=== PATIENT | male | born 1950 | race Caucasian/White ===

== ENCOUNTER → 2023-05-15 13:57 | Outpatient (BNVA) | payer BC, SELFPAY | PROVIDERS: PCP Physician Assistant Medical; Visit Provider Nurse Practitioner Family ==

== ENCOUNTER → 2023-06-07 14:02 | Outpatient (BNVA) | payer BC, SELFPAY | PROVIDERS: PCP Physician Assistant Medical; Visit Provider Nurse Practitioner Family | DX: N43.3 Hydrocele, unspecified (principal); Z85.46 Personal history of malignant neoplasm of prostate; Z79.899 Other long term (current) drug therapy | CPT/HCPCS: 55000 ==

== ENCOUNTER → 2023-07-18 10:39 | Outpatient (BNVA) | payer BC, SELFPAY | PROVIDERS: PCP Physician Assistant Medical; Visit Provider Nurse Practitioner Family | DX: N43.3 Hydrocele, unspecified (principal); R39.12 Poor urinary stream; C61 Malignant neoplasm of prostate | CPT/HCPCS: 81003 ==

== ENCOUNTER → 2023-07-18 10:39 | Outpatient (AMB) | payer BC, SELFPAY ==
--- NOTE | 2023-07-18 10:42 | A.OFFVIS_ITS ---
Intake Intake Visit Reasons: 6w follow up Intake Note: Patient is present follow up Left hydrocele aspiration Urology Medications: none Blood Thinner: none Media Buyer Required: No Accompanied by: Self / Same As Patient Allergies No Known Allergies Allergy (Verified 07/18/23 20:46) Medication List - Last Reconciled 07/18/23 by MUSA Dodson- amlodipine 5 mg PO DAILY lisinopril 40 mg PO DAILY pravastatin 10 mg PO BEDTIME tamsulosin 0.4 mg PO BEDTIME 30 days HPI HPI Comments History of Present Illness Details Joshua is a very pleasant 73-year-old male patient of Dr. Kim. He has a past medical history of hypertension, hyperlipidemia, and prostate cancer. He presents to the office today for a follow up of his recent hydrocele drainage. Of note, patient was previously seen approximately 6 weeks ago at which time he underwent left-sided hydrocele drainage in the office. When asked patient reports to be doing and feeling well. In assessment of the patient today significant improvement in left sided hydrocele. Patient does continue with small residual within the left scrotal/testicle area. However, patient reports to be doing and feeling much better as he had previously been experiencing pain due to moderate sized hydrocele. No redness, open areas, or drainage noted. During last office visit patient reported to be following up with PSAs with PCP these records were obtained for continuity of care. PSAs are as follows: 02/06--3.9, 10/10--2.7, 04/10--1.11, 12/12--0.5, 06/11--0.4, 12/13--0.3, 12/14--0.3, 06/13 0.3, 12/15--0.3, 05/15--0.4, 02/13--0.3, 06/15--0.3, 07/17--0.3 When asked patient does report weak urinary stream however he denies urinary urgency, urinary frequency, incontinence, nocturia, hematuria, dysuria, foul smelling urine, flank pain, fever, and or chills. Discussed obtaining retroperitoneal ultrasound for further assessment evaluation however patient declines at this time. Discussed at length potential causes for change in urinary stream. Discussed near future in office cystoscopy if symptoms persist and/or worsen. Discuss trial of Flomax. Patient otherwise denies any other issues or concerns at this time. FORMERLY [facility], [facility] Medical History (Updated 07/18/23 @ 21:08 by RADHA Dodson) Accelerated essential hypertension Hyperlipidemia Prostate cancer Review of Systems Const Reports as per HPI Eyes Reports no additional complaints ENT Reports no additional complaints Card Reports as per HPI Resp Reports no additional complaints GI Reports no additional complaints Reports as per HPI Musc Reports no additional complaints Neuro Reports no additional complaints Psych Reports no additional complaints Endo Reports no additional complaints Anam/Lymph Reports no additional complaints Aller/Immun Reports no additional complaints Physical Exam Const General: cooperative, healthy appearing, comfortable, no acute distress, well developed, alert and awake Orientation/consciousness: patient oriented x3 Limitations: no limitations HEENT Head: Yes normal to inspection, Yes normocephalic and Yes atraumatic Ears: hearing grossly normal bilaterally Eyes General: appearance normal, both eyes and all related structures Neck Neck: Yes normal visual inspection and Yes trachea midline Chest Chest palpation & inspection: normal inspection of the chest Resp Effort & Inspection: normal respiratory effort and able to speak in complete sentences Cardio Rate: regular rate GI Inspection: Yes normal to inspection General: Yes no CVA tenderness Penis: normal penis Meatus: meatus normal Scrotum: Hydrocele present (trace/small) on the left Testes: Testes normal Back/Spine/Pelvis Back: no CVA tenderness Skin General skin exam: no rashes or lesions noted Neuro General: patient oriented x3 Extrem General: Yes normal to inspection Psych Appearance: grossly normal and well kempt Mental Status: mental status grossly normal Speech and movement: Normal speech and movement present and Clear speech present Affect: normal affect Attitude: cooperative Thought process: Normal thought process present Thought content: Normal thought content present Insight: Good insight present (Psych) Judgement: Good judgement present (Psych) Results AMB Urinalysis, Automated UA Leukoctes 0 Rashid/uL Last Edit by Shawanda Guthrie on 07/18/23 11:04 UA Nitrite Negative Last Edit by Shawanda Guthrie on 07/18/23 11:04 UA Urobilinogen 0.2 mg/dL Last Edit by Shawanda Guthrie on 07/18/23 11:04 UA Protein 30 mg/dL Last Edit by Shawanda Guthrie on 07/18/23 11:04 UA pH 6.0 Last Edit by Shawanda Guthrie on 07/18/23 11:04 UA Blood 0 Rashaun/uL Last Edit by Shawanda Guthrie on 07/18/23 11:04 UA Specific [place] 1.020 Last Edit by Shawanda Guthrie on 07/18/23 11:04 UA Ketone Last Edit by Shawanda Vansuhail on 07/18/23 11:04 UA Bilirubin 0 mg/dL Last Edit by Shawanda Guthrie on 07/18/23 11:04 UA Glucose 0 mg/dL Last Edit by Shawanda Vansuhail on 07/18/23 11:04 Results Reviewed Results Reviewed: Laboratory Last Values Urine pH (Auto) 6.0 07/18/23 10:45 Specific [place] (Auto) 1.020 07/18/23 10:45 Urine Protein (Auto) 30 mg/dL 07/18/23 10:45 Glucose (UA)(Auto) 0 mg/dL 07/18/23 10:45 Urine Blood (Auto) 0 Rashaun/uL 07/18/23 10:45 Urine Nitrite (Auto) Negative 07/18/23 10:45 Urine Bilirubin (Auto) 0 mg/dL 07/18/23 10:45 Urine Urobilinogen (Auto) 0.2 mg/dL 07/18/23 10:45 Leukocyte Esterase (Auto) 0 Rashid/uL 07/18/23 10:45 Assessment & Plan Assessment & Plan (1) Hydrocele of testis: Code(s): N43.3 - Hydrocele, unspecified (2) Weak urinary stream: Code(s): R39.12 - Poor urinary stream (3) Prostate cancer: Code(s): C61 - Malignant neoplasm of prostate Plan In office urinalysis results reviewed with the patient today; as noted above. Patient with trace/small residual to left-sided hydrocele that was drained in the office approximately 6 weeks ago. Patient reports significant improvement in pain he had been experiencing to testicle/scrotum. Patient reporting weak urinary stream discussed potential causes. Discussed obtaining retroperitoneal ultrasound for further assessment evaluation however patient declines. Discussed near future in office cystoscopy if symptoms persist and/or worsen. Start Flomax as discussed and prescribed. Patient with history of prostate cancer PSAs obtained it appears over the last 6 years PSA has been less than 0.5. Follow-up in 6 weeks with PVR; or sooner with any issues, concerns, and or questions. Orders: Orders AMB Urinalysis Automated Today Z13.9 - Encounter for screening, unspecified Medications: New tamsulosin 0.4 mg PO BEDTIME 30 days 30 caps 1RF N40.1 - Benign prostatic hyperplasia with lower urinary tract symptoms, R35.1 - Nocturia Patient Instructions: The patient had an opportunity to ask questions regarding the treatment plan. All questions were answered. Physical exam, labs, and imaging were discussed and reviewed in detail. As well as risks, benefits, and discussion of treatment choices. No major barriers to understanding were identified. The patient expressed understanding and agreement with the above treatment plan. The patient was made aware they should contact our office by phone for worsening of their current condition, the appearance of new symptoms, or with any questions or concerns. Compliance is encouraged with any medications and follow up testing that is ordered. It is a privilege to be allowed the opportunity to participate in? your urological care.? Again, if you have any questions or concerns If you have any questions or concerns please do not hesitate to contact me. The office is [phone]. This note is constructed using voice recognition software. While every effort has been made to ensure accuracy vocational aide errors may have been included. Yours sincerely, RADHA Dodson Coding Level of Care Code Est Pt Level 4 (04124) Diagnoses Hydrocele of testis N43.3 Weak urinary stream R39.12 Prostate cancer C61
== END ==
PROVIDERS: PCP Physician Assistant Medical; Visit Provider Nurse Practitioner Family
DX: N43.3 Hydrocele, unspecified (principal); R39.12 Poor urinary stream; C61 Malignant neoplasm of prostate
CPT/HCPCS: 99214

== ENCOUNTER 2023-10-17 11:32 | Outpatient (AMB) | payer BC, SELFPAY ==
--- NOTE | 2023-10-17 11:38 | A.OFFVIS_ITS ---
Intake Intake Visit Reasons: Hydrocele - follow up/PVR Intake Note: Patient is present follow up Left hydrocele aspiration Urology Medications: tamsulosin Blood Thinner: none PVR: 69ml's Senior Case Manager Required: No Accompanied by: Self / Same As Patient Allergies No Known Allergies Allergy (Verified 10/19/23 19:59) Medication List - Last Reconciled 10/19/23 by [place] [facility]- alfuzosin ER 10 mg PO BEDTIME 30 days amlodipine 5 mg PO DAILY lisinopril 40 mg PO DAILY pravastatin 10 mg PO BEDTIME HPI HPI Comments History of Present Illness Details Joshua is a very pleasant 73-year-old male patient of Dr. Kim. He has a past medical history of hypertension, hyperlipidemia, and prostate cancer. He presents to the office today for a follow up of his lower urinary tract symptoms and left-sided hydrocele. Patient underwent in office left-sided hydrocele drainage earlier this year year. Of note, patient was seen approximately 6 weeks ago at which time he was started on 0.4 mg of tamsulosin for weak urinary stream and feelings of incomplete bladder emptying. In discussion with the patient today he reports feeling improvement in urinary stream and incomplete bladder emptying. However, he discusses noting retrograde ejaculation. He continues with significant improvement left-sided hydrocele. He otherwise denies urinary urgency, urinary frequency, incontinence, nocturia, hematuria, dysuria, foul smelling urine, flank pain, fever, and or chills. Patient with a history of prostate cancer. PSAs are as follows: 02/06--3.9, 10/10--2.7, 04/10--1.11, 12/12- -0.5, 06/11--0.4, 12/13--0.3, 12/14--0.3, 06/13 0.3, 12/15--0.3, 05/15--0.4, 02/13--0.3, 06/15--0.3, 07/17--0.3 Discussed obtaining PSA. Discussed at length side effects of tamsulosin. Discussed obtaining retroperitoneal ultrasound for further assessment evaluation however patient declines at this time. Discussed at length potential causes for change in urinary stream. Discussed near future in office cystoscopy if symptoms persist and/or worsen. Patient otherwise denies any other issues or concerns at this time. [facility] Medical History Prostate cancer Hyperlipidemia Accelerated essential hypertension Review of Systems Const Reports as per HPI Eyes Reports no additional complaints ENT Reports no additional complaints Card Reports as per HPI Resp Reports no additional complaints GI Reports no additional complaints Reports as per HPI Musc Reports no additional complaints Neuro Reports no additional complaints Psych Reports no additional complaints Endo Reports no additional complaints Anam/Lymph Reports no additional complaints Aller/Immun Reports no additional complaints Physical Exam Const General: cooperative, healthy appearing, comfortable, no acute distress, well developed, alert and awake Orientation/consciousness: patient oriented x3 Limitations: no limitations HEENT Head: Yes normal to inspection, Yes normocephalic and Yes atraumatic Ears: hearing grossly normal bilaterally Eyes General: appearance normal, both eyes and all related structures Neck Neck: Yes normal visual inspection and Yes trachea midline Chest Chest palpation & inspection: normal inspection of the chest Resp Effort & Inspection: normal respiratory effort and able to speak in complete sentences Cardio Rate: regular rate GI Inspection: Yes normal to inspection General: Yes no CVA tenderness Penis: normal penis Meatus: meatus normal Scrotum: Hydrocele present (trace/small) on the left Testes: Testes normal Back/Spine/Pelvis Back: no CVA tenderness Skin General skin exam: no rashes or lesions noted Neuro General: patient oriented x3 Extrem General: Yes normal to inspection Psych Appearance: grossly normal and well kempt Mental Status: mental status grossly normal Speech and movement: Normal speech and movement present and Clear speech present Affect: normal affect Attitude: cooperative Thought process: Normal thought process present Thought content: Normal thought content present Insight: Good insight present (Psych) Judgement: Good judgement present (Psych) Office Procedures Post Void Residual Post Residual Void Post Void Residual (PVR): 69 [id number]-[id number] Void Residual by ultrasound Results AMB Urinalysis, Automated UA Leukoctes 0 Rashid/uL Last Edit by Shawanda Guthrie on 10/17/23 11:58 UA Nitrite Negative Last Edit by Shawanda Guthrie on 10/17/23 11:58 UA Urobilinogen 0.2 mg/dL Last Edit by Shawanda Guthrie on 10/17/23 11:58 UA Protein 0 mg/dL Last Edit by Shawanda Guthrie on 10/17/23 11:58 UA pH 6.0 Last Edit by Shawanda Guthrie on 10/17/23 11:58 UA Blood 10 Rashaun/uL Last Edit by Shawanda Guthrie on 10/17/23 11:58 UA Specific [place] 1.015 Last Edit by Shawanda Guthrie on 10/17/23 11:58 UA Ketone Negative Last Edit by Shawanda Guthrie on 10/17/23 11:58 UA Bilirubin 0 mg/dL Last Edit by Shawanda Guthrie on 10/17/23 11:58 UA Glucose 0 mg/dL Last Edit by Shawanda Guthrie on 10/17/23 11:58 Results Reviewed Results Reviewed: Laboratory Last Values Urine pH (Auto) 6.0 10/17/23 11:44 Specific [place] (Auto) 1.015 10/17/23 11:44 Urine Protein (Auto) 0 mg/dL 10/17/23 11:44 Glucose (UA)(Auto) 0 mg/dL 10/17/23 11:44 Urine Ketones (Auto) Negative 10/17/23 11:44 Urine Blood (Auto) 10 Rashaun/uL 10/17/23 11:44 Urine Nitrite (Auto) Negative 10/17/23 11:44 Urine Bilirubin (Auto) 0 mg/dL 10/17/23 11:44 Urine Urobilinogen (Auto) 0.2 mg/dL 10/17/23 11:44 Leukocyte Esterase (Auto) 0 Rashid/uL 10/17/23 11:44 Assessment & Plan Assessment & Plan (1) Prostate cancer: Code(s): C61 - Malignant neoplasm of prostate (2) Weak urinary stream: Code(s): R39.12 - Poor urinary stream Plan In office urinalysis results reviewed with the patient today; as noted above. PVR 69 mL. Discussed at length side effects of tamsulosin. Stop tamsulosin as discussed. Start alfuzosin 10 mg daily as discussed and prescribed. Will obtain PSA for further assessment evaluation. Discussed near future in office cystoscopy if symptoms persist and/or worsen. Discussed obtaining retroperitoneal ultrasound for further assessment evaluation however patient declines at this time. Hydrocele stable Discussed, educated, encouraged on the importance of drinking plenty of water daily. Follow-up in 6 weeks with lab to be completed prior and PVR at next office visit; or sooner with any issues, concerns, and or questions. Orders: Orders AMB Urinalysis Automated 10/17/23 Z13.9 - Encounter for screening, unspecified AMB Post Void Residual by ultrasound 10/17/23 R39.12 - Poor urinary stream Prostate Specific Antigen 10/17/23 C61 - Malignant neoplasm of prostate Medications: New alfuzosin ER Take before bedtime 10 mg PO BEDTIME 30 tabs 1RF 30 days N32.0 - Bladder-neck obstruction, N40.1 - Benign prostatic hyperplasia with lower urinary tract symptoms, R33.9 - Retention of urine, unspecified, R35.1 - Nocturia, R39.12 - Poor urinary stream Discontinued tamsulosin Discontinued Reason: Doctor's Order 0.4 mg PO BEDTIME 30 days 30 caps 0RF N40.1 - Benign prostatic hyperplasia with lower urinary tract symptoms, R35.1 - Nocturia Patient Instructions: The patient had an opportunity to ask questions regarding the treatment plan. All questions were answered. Physical exam, labs, and imaging were discussed and reviewed in detail. As well as risks, benefits, and discussion of treatment choices. No major barriers to understanding were identified. The patient expressed understanding and agreement with the above treatment plan. The patient was made aware they should contact our office by phone for worsening of their current condition, the appearance of new symptoms, or with any questions or concerns. Compliance is encouraged with any medications and follow up testing that is ordered. It is a privilege to be allowed the opportunity to participate in? your urological care.? Again, if you have any questions or concerns If you have any questions or concerns please do not hesitate to contact me. The office is [phone]. This note is constructed using voice recognition software. While every effort has been made to ensure accuracy medical transcriptionist errors may have been included. Yours sincerely, RADHA Dodson Coding Level of Care Code Est Pt Level 4 (00017) Diagnoses Prostate cancer C61 Weak urinary stream R39.12 CPT Codes Post Residual Void - PVR CPT Code: 15836-Lswr Void Residual by ultrasound ([id number])
== END 2023-10-17 12:24 | disposition home or self-care (01) ==
PROVIDERS: PCP Physician Assistant Medical; Visit Provider Nurse Practitioner Family
DX: C61 Malignant neoplasm of prostate (principal); R39.12 Poor urinary stream
CPT/HCPCS: 99214

== ENCOUNTER → 2023-10-17 11:32 | Outpatient (BNVA) | payer BC, SELFPAY | PROVIDERS: PCP Physician Assistant Medical; Visit Provider Nurse Practitioner Family | DX: C61 Malignant neoplasm of prostate (principal); R39.12 Poor urinary stream | CPT/HCPCS: 51798; 81003 ==

== ENCOUNTER 2023-12-28 10:41 | Outpatient (AMB) | payer BC, SELFPAY ==
--- NOTE | 2023-12-28 10:42 | MHC.OFFVIS ---
Intake Intake Visit Reasons: 6w/PVR Intake Note: Patient is present follow up PSA labs/prostate Cancer Urology Medications: D/C tamsulosin, Alfuzosin Blood Thinner: none PVR: 66ml's Substation Operator Chief Required: No Accompanied by: Self / Same As Patient Allergies No Known Allergies Allergy (Verified 12/29/23 21:13) Medication List - Last Reconciled 12/29/23 by RODRIGUE DodsonP- alfuzosin ER 10 mg PO BEDTIME 90 days amlodipine 5 mg PO DAILY lisinopril 40 mg PO DAILY pravastatin 10 mg PO BEDTIME HPI HPI Comments History of Present Illness Details Joshua is a very pleasant 73-year-old male patient of Dr. Kim. He has a past medical history of hypertension, hyperlipidemia, and prostate cancer. He presents to the office today for a follow up of his lower urinary tract symptoms and left-sided hydrocele. Of note, patient was seen approximately 2 months ago at which time he was started on alfuzosin 10 mg daily and Flomax was discontinued due to reports of bothersome retrograde ejaculation. In discussion with the patient today he reports to be happy with his current voiding parameters on 10 mg of alfuzosin and wishes to continue and is requesting medication refill. In office urinalysis results reviewed with the patient today. PVR 66 mL. He reports noting significant improvement in urinary stream and feelings of incomplete bladder emptying has improved. He otherwise denies urinary urgency, urinary frequency, incontinence, nocturia, hematuria, dysuria, foul smelling urine, flank pain, fever, and or chills. Recent PSA results reviewed with the patient today. Patient with a history of prostate cancer. PSAs are as follows: 02/06--3.9, 10/10--2.7, 04/10--1.11, 12/12--0.5, 06/11--0.4, 12/13--0.3, 12/14--0.3, 06/13 0.3, 12/15--0.3, 05/15--0.4, 02/13--0.3, 06/15--0.3, 07/17--0.3, 12/19--0.3 Patient with a history of left-sided hydrocele status post in office drainage last year with Dr. Ramires. He continues with significant improvement left-sided hydrocele. Patient otherwise denies any other issues or concerns at this time. COUNTS INCLUDE 234 BEDS AT THE [facility] Medical History Prostate cancer Hyperlipidemia Accelerated essential hypertension Review of Systems Const Reports as per HPI Eyes Reports no additional complaints ENT Reports no additional complaints Card Reports as per HPI Resp Reports no additional complaints GI Reports no additional complaints Reports as per HPI Musc Reports no additional complaints Neuro Reports no additional complaints Psych Reports no additional complaints Endo Reports no additional complaints Anam/Lymph Reports no additional complaints Aller/Immun Reports no additional complaints Physical Exam Const General: cooperative, healthy appearing, comfortable, no acute distress, well developed, alert and awake Orientation/consciousness: patient oriented x3 Limitations: no limitations HEENT Head: Yes normal to inspection, Yes normocephalic and Yes atraumatic Ears: hearing grossly normal bilaterally Eyes General: appearance normal, both eyes and all related structures Neck Neck: Yes normal visual inspection and Yes trachea midline Chest Chest palpation & inspection: normal inspection of the chest Resp Effort & Inspection: normal respiratory effort and able to speak in complete sentences Cardio Rate: regular rate GI Inspection: Yes normal to inspection General: Yes no CVA tenderness Penis: normal penis Meatus: meatus normal Scrotum: Hydrocele present (trace/small) on the left Testes: Testes normal Back/Spine/Pelvis Back: no CVA tenderness Skin General skin exam: no rashes or lesions noted Neuro General: patient oriented x3 Extrem General: Yes normal to inspection Psych Appearance: grossly normal and well kempt Mental Status: mental status grossly normal Speech and movement: Normal speech and movement present and Clear speech present Affect: normal affect Attitude: cooperative Thought process: Normal thought process present Thought content: Normal thought content present Insight: Good insight present (Psych) Judgement: Good judgement present (Psych) Office Procedures Post Void Residual Post Residual Void Post Void Residual (PVR): 66 [id number] Void Residual by ultrasound Assessment & Plan Assessment & Plan (1) Prostate cancer: Code(s): C61 - Malignant neoplasm of prostate (2) Weak urinary stream: Code(s): R39.12 - Poor urinary stream Plan In office urinalysis results reviewed with the patient today; as noted above. PVR 66 mLs. Continue alfuzosin 10 mg daily as discussed and prescribed; refill provided. Patient reports be happy with current voiding parameters on alfuzosin 10 mg daily. Recent PSA results reviewed with the patient today Discussed near future in office cystoscopy if symptoms arise. Discussed, educated, encouraged on the importance of drinking plenty of water daily. Follow-up in 4 months with PVR; or sooner with any issues, concerns, and or questions. Orders: Orders AMB Urinalysis Automated 12/28/23 Z13.9 - Encounter for screening, unspecified AMB Post Void Residual by ultrasound 12/28/23 R39.12 - Poor urinary stream Medications: Changed From alfuzosin ER Take before bedtime 10 mg PO BEDTIME 30 days 30 tabs 0RF N32.0 - Bladder-neck obstruction, N40.1 - Benign prostatic hyperplasia with lower urinary tract symptoms, R33.9 - Retention of urine, unspecified, R35.1 - Nocturia, R39.12 - Poor urinary stream To alfuzosin ER Take before bedtime 10 mg PO BEDTIME 90 days 90 tabs 3RF N32.0 - Bladder-neck obstruction, N40.1 - Benign prostatic hyperplasia with lower urinary tract symptoms, R33.9 - Retention of urine, unspecified, R35.1 - Nocturia, R39.12 - Poor urinary stream Patient Instructions: The patient had an opportunity to ask questions regarding the treatment plan. All questions were answered. Physical exam, labs, and imaging were discussed and reviewed in detail. As well as risks, benefits, and discussion of treatment choices. No major barriers to understanding were identified. The patient expressed understanding and agreement with the above treatment plan. The patient was made aware they should contact our office by phone for worsening of their current condition, the appearance of new symptoms, or with any questions or concerns. Compliance is encouraged with any medications and follow up testing that is ordered. It is a privilege to be allowed the opportunity to participate in? your urological care.? Again, if you have any questions or concerns If you have any questions or concerns please do not hesitate to contact me. The office is [phone]. This note is constructed using voice recognition software. While every effort has been made to ensure accuracy horse race starter errors may have been included. Yours sincerely, RADHA Dodson Coding Level of Care Code Est Pt Level 3 (87719) Diagnoses Prostate cancer C61 Weak urinary stream R39.12 CPT Codes Post Residual Void - PVR CPT Code: 99964-Jywk Void Residual by ultrasound ([id number])
== END 2023-12-28 11:09 | disposition home or self-care (01) ==
PROVIDERS: PCP Physician Assistant Medical; Visit Provider Nurse Practitioner Family
DX: C61 Malignant neoplasm of prostate (principal); R39.12 Poor urinary stream
CPT/HCPCS: 99213

== ENCOUNTER → 2023-12-28 10:41 | Outpatient (BNVA) | payer BC, SELFPAY | PROVIDERS: PCP Physician Assistant Medical; Visit Provider Nurse Practitioner Family | DX: C61 Malignant neoplasm of prostate (principal); R39.12 Poor urinary stream; Z79.899 Other long term (current) drug therapy | CPT/HCPCS: 51798 ==

== ENCOUNTER 2024-02-07 08:06 | Outpatient (AMB) | payer BC, SELFPAY ==
--- NOTE | 2024-02-07 08:19 | A.OFFVIS_ITS ---
Intake Intake Visit Reasons: 2nd opinion for hydrocele Intake Note: Patient is present follow up 2ND opinion for Hydrocele: Urology Medications: Alfuzosin Blood Thinner: none PVR: 35 ml's Shearing Machine Feeder Required: No Accompanied by: Self / Same As Patient Allergies No Known Allergies Allergy (Verified 02/07/24 08:32) HPI HPI Comments History of Present Illness Details Omid is a 73-year-old male who is here for a 2nd opinion due to scrotal swelling. He states he has had a hydrocele of the left testicle diagnosed several years ago. He states that it was drained 5 years ago by 1 urologist and more recently a few months ago it was drained again in this o ffice. (I have reviewed that note 50 cc of fluid was drained and doxycycline 200 mg was used as a sclerosing agent). He states that he has no scrotal pain. He continues to feel swelling in the area of the left testicle which is concerning to him he is worried about cancer. He was told that there was a cyst in that area. He states he has not had any recent ultrasounds done. The patient has a history of prostate cancer and is on alfuzosin for weak urinary stream. In review of his chart there is a scrotal ultrasound from 2010 which noted epididymal cysts. Examination today both testicles are palpated there is a cystic structure along the course of the epididymis with prominence at the epididymal head on the left side. Scrotal exam is nontender. 40 minutes spent in review of records pe rtaining to this visit and including [id number] discussion with the patient and documentation of this visit. Review of labs: Total PSA 11/29/2023-- 0.3 ng/mL Plan: Scrotal ultrasound. [facility] Medical History Prostate cancer Hyperlipidemia Accelerated essential hypertension Review of Systems Const All systems reviewed & are unremarkable except as noted in HPI and below Reports no additional complaints Eyes Reports no additional complaints ENT Reports no additional complaints Card Denies dyspnea Resp Denies cough and Denies dyspnea GI Reports no additional complaints Musc Reports no additional complaints Skin/Breast Denies rash and Denies unusual bruising Neuro Reports no additional complaints Psych Reports no additional complaints Endo Reports no additional complaints Anam/Lymph Reports no additional complaints Aller/Immun Reports no additional complaints Physical Exam Const General: healthy appearing, no acute distress and well developed Orientation/consciousness: patient oriented x3 HEENT Head: Yes normocephalic and Yes atraumatic Eyes Conjunctivae: conjunctivae normal Neck Neck: Yes normal visual inspection Chest Chest palpation & inspection: normal inspection of the chest Resp Effort & Inspection: normal respiratory effort Cardio Rate: regular rate GI Inspection: Yes normal to inspection Palpation (GI): Soft to palpation Other: Examination today both testicles are palpated there is a cystic structure along the course of the epididymis with prominence at the epididymal head on the left side. Scrotal exam is nontender. Penis: normal penis Skin General skin exam: no rashes or lesions noted Neuro General: patient oriented x3 Extrem General: No pedal edema Psych Appearance: grossly normal Affect: normal affect Office Procedures Post Void Residual Post Residual Void Post Void Residual (PVR): 35 [id number] Void Residual by ultrasound Results AMB Urinalysis, Automated UA Leukoctes 0 Rashid/uL Last Edit by DA Pan on 02/07/24 08:36 UA Nitrite Negative Last Edit by DA Pan on 02/07/24 08:36 UA Urobilinogen 0.2 mg/dL Last Edit by DA Pan on 02/07/24 08:3 6 UA Protein 0 mg/dL Last Edit by DA Pan on 02/07/24 08:36 UA pH 6.0 Last Edit by DA Pan on 02/07/24 08:36 UA Blood 0 Rashaun/uL Last Edit by DA Pan on 02/07/24 08:36 UA Specific Hurley 1.010 Last Edit by DA Pan on 02/07/24 08: 36 UA Ketone Negative Last Edit by DA Pan on 02/07/24 08:36 UA Bilirubin 0 mg/dL Last Edit by DA Pan on 02/07/24 08:36 UA Glucose 0 mg/dL Last Edit by DA Pan on 02/07/24 08:36 Results Reviewed Results Reviewed: Laboratory Last Values Urine pH (Auto) 6.0 02/07/24 08:34 Specific Hurley (Auto) 1.010 02/07/24 08:34 Urine Protein (Auto) 0 mg/dL 02/07/24 08:34 Glucose (UA)(Auto) 0 mg/dL 02/07/24 08:34 Urine Ketones (Auto) Negative 02/07/24 08:34 Urine Blood (Auto) 0 Rashaun/uL 02/07/24 08:34 Urine Nitrite (Auto) Negative 02/07/24 08:34 Urine Bilirubin (Auto) 0 mg/dL 02/07/24 08:34 Urine Urobilinogen (Auto) 0.2 mg/dL 02/07/24 08:34 Leukocyte Esterase (Auto) 0 Rashid/uL 02/07/24 08:34 Assessment & Plan Assessment & Plan (1) Hydrocele of testis: Code(s): N43.3 - Hydrocele, unspecified (2) Epididymal cyst: Code(s): N50.3 - Cyst of epididymis (3) Prostate cancer: Code(s): C61 - Malignant neoplasm of prostate (4) Weak urinary stream: Code(s): R39.12 - Poor urinary stream Plan Scrotal ultrasound. Follow-up in 3 months Orders: Orders AMB Urinalysis Automated Today Z13.9 - Encounter for screening, unspecified AMB Post Void Residual by ultrasound Today N39.8 - Other specified disorders of urinary system US scrotum Today N43.3 - Hydrocele, unspecified, N50.3 - Cyst of epididymis Patient Instructions: The patient had an opportunity to ask questions regarding treatment plan. All questions were answered. Imaging, Laboratory studies and physical exam results were discussed and reviewed in detail. No major barriers to understanding were identified. The patient expressed understanding and agreement with the above treatment plan. The patient is aware they should contact our office by phone for worsening of their current condition or the appearance of new symptoms. Compliance is encouraged with any medications and followup testing that is ordered. It is a privilege to be allowed the opportunity to participate in the urologic care of your patient. If you have any questions or concerns regarding treatment for the above conditions please do not hesitate to contact me. The office telephone contact is [phone]. This note is constructed in part using voice recognition software. While every effort has been made to ensure accuracy athletic shoe designer errors may have been included. Yours sincerely, Jimy Sandoval MD Coding Level of Care Code Est Pt Level 5 (36558) Diagnoses Hydrocele of testis N43.3 Epididymal cyst N50.3 Prostate cancer C61 Weak urinary stream R39.12 CPT Codes Post Residual Void - PVR CPT Code: 69462-Vywy Void Residual by ultrasound ([id number]) Time Spent (min) 40
== END 2024-02-07 09:23 | disposition home or self-care (01) ==
PROVIDERS: PCP Physician Assistant Medical; Visit Provider Urology
DX: N43.3 Hydrocele, unspecified (principal); N50.3 Cyst of epididymis; C61 Malignant neoplasm of prostate; R39.12 Poor urinary stream
CPT/HCPCS: 99215

== ENCOUNTER → 2024-02-07 08:06 | Outpatient (BNVA) | payer BC, SELFPAY | PROVIDERS: PCP Physician Assistant Medical; Visit Provider Urology | DX: N43.3 Hydrocele, unspecified (principal); N50.3 Cyst of epididymis; C61 Malignant neoplasm of prostate; R39.12 Poor urinary stream; N39.8 Other specified disorders of urinary system | CPT/HCPCS: 51798; 81003 ==

== ENCOUNTER 2024-04-22 12:45 | Outpatient (REF) | payer BC, SELFPAY ==
--- NOTE | ~2024-04-22 | US_ITS ---
EXAMINATION: US SCROTUM CLINICAL INFORMATION: Hydrocele, unspecified. Left discomfort. COMPARISON: None available. TECHNIQUE: A sonogram of the scrotum was performed assessing chacon-scale appearance and color Doppler flow. Spectral Doppler analysis of the arterial and venous flow were performed in the testes bilaterally. The findings were discussed with wash helper, Haley Liang at time of interpretation on FINDINGS: RIGHT: Right testicle measures 3.5 x 1.8 x 2.2 cm, volume 7.1 mL. No focal testicular parenchymal lesions are visualized. Spectral Doppler analysis of the arterial and venous flow is normal in the right testis. 0.4 x 0.4 x 0.4 cm complex cyst with septations versus cluster of cysts in the region of the right epididymal head. Right varicocele. No significant right hydrocele. Right epididymal Doppler flow is normal. LEFT: Left testicle measures 3.3 x 1.9 x 2.6 cm, volume 8.5 mL. There is a 0.3 cm cyst along the medial lower pole of the left testicle, possibly intratesticular, versus extratesticular. Spectral Doppler analysis of the arterial and venous flow is normal in the left testis. Multiple large cystic areas in the region of the left scrotum/epididymis, largest measures 1.9 x 1.7 x 2.1 cm. Visualization of adjacent structures is limited due to the multiple large cystic collections in the left scrotal region. Left epididymis was not visualized with confidence. Differential considerations include fluid collections such as spermatoceles, although wash helper said question varicocele as well, unsure what she means. There is a 0.3 cm cyst along the medial lower pole of the left testicle, possibly intratesticular, versus extratesticular. Left varicocele. US/US scrotum IMPRESSION: 1. Multiple large cystic areas in the region of the left scrotum/epididymis, largest measures 1.9 x 1.7 x 2.1 cm. Visualization of adjacent structures is limited due to the multiple large cystic collections in the left scrotal region. Left epididymis was not visualized with confidence. Differential considerations include fluid collections such as spermatoceles. 2. There is a 0.4 x 0.4 x 0.4 cm complex cyst with septations versus cluster of cysts in the region of the right epididymal head. 3. There is a 0.3 cm cyst along the medial lower pole of the left testicle, possibly intratesticular, versus extratesticular. 4. Bilateral varicoceles. 5. Urologic consultation recommended for further evaluation. This study was presented Sunday, May 05, 2024 for interpretation. PSA staff will provide results to referring provider at this time.
== END 2024-04-22 12:46 | disposition home or self-care (01) ==
LOC: HO.US 12:45
PROVIDERS: PCP Physician Assistant Medical; Visit Provider Urology
DX: N43.3 Hydrocele, unspecified (principal); N50.3 Cyst of epididymis
CPT/HCPCS: 76870

== ENCOUNTER 2024-05-05 13:53 | Outpatient (AMB) | payer BC, SELFPAY ==
--- NOTE | 2024-05-05 13:53 | A.OFFVIS_ITS ---
Intake Visit Reasons: 3m/US Intake Note: Patient is present follow up Scrotal US Results Urology Medications: Alfuzosin Blood Thinner: none Radio Commentator Required: No Accompanied by: Self / Same As Patient Allergies No Known Allergies Allergy (Verified 02/07/24 08:32) HPI Comments Details: 05/05/24--Telehealth fu to review scrotal US results-04/22/24- discussed that the US results noted that the left scrotal swelling was related to left spermatocele rather than left hydrocele. A tiny 0.3 cm left testicular cyst also noted. Additional findings detailed in report below. Currently to the patient is asymptomatic. Will continue to monitor. Review of chart: 02/07/24---Omid is a 73-year-old male who is here for a 2nd opinion due to scrotal swelling. He states he has had a hydrocele of the left testicle diagnosed several years ago. He states that it was drained 5 years ago by 1 urologist and more recently a few months ago it was drained again in this office. (I have reviewed that note 50 cc of fluid was drained and doxycycline 200 mg was used as a sclerosing agent). He states that he has no scrotal pain. He continues to feel swelling in the area of the left testicle which is concerning to him he is worried about cancer. He was told that there was a cyst in that area. He states he has not had any recent ultrasounds done. The patient has a history of prostate cancer and is on alfuzosin for weak urinary stream. In review of his chart there is a scrotal ultrasound from 2010 which noted e pididymal cysts. Examination today both testicles are palpated there is a cystic structure along the course of the epididymis with prominence at the epididymal head on the left side. Scrotal exam is nontender. 40 minutes spent in review of records pertaining to this visit and including [id number] discussion with the patient and documentation of this visit. Review of labs: Total PSA 11/29/2023-- 0.3 ng/mL [facility] Medical History Prostate cancer Hyperlipidemia Accelerated essential hypertension Review of Systems Const All systems reviewed & are unremarkable except as noted in HPI and below Reports no additional complaints Eyes Reports no additional complaints ENT Reports no additional complaints Card Reports no additional complaints Resp Reports no additional complaints GI Reports no additional complaints Reports as per HPI Musc Reports no additional complaints Skin/Breast Reports system reviewed and no additional complaints, except as documented Neuro Reports no additional complaints Psych Reports no additional complaints Endo Reports no additional complaints Anam/Lymph Reports no additional complaints Aller/Immun Reports no additional complaints Telehealth Telehealth Telehealth Platform: [employer] Location of provider rendering services: practice address Location of patient: address on file Patient Identification confirmed using: Name, : Yes Telehealth method: voice only Patient verbally consented to treatment: Yes Patient verbally consented to billing insurance company: Yes Patient informed of any privacy concerns related to visit: Yes Minutes spent on Phone/Video with Pt.: 18 Results Reviewed Results Reviewed: Date of Service: 04/22/24 EXAMINATION: US SCROTUM CLINICAL INFORMATION: Hydrocele, unspecified. Left discomfort. COMPARISON: None available. TECHNIQUE: A sonogram of the scrotum was performed assessing chacon-scale appearance and color Doppler flow. Spectral Doppler analysis of the arterial and venous flow were performed in the testes bilaterally. The findings were discussed with service secretary, Haley Liang at time of interpretation on FINDINGS: RIGHT: Right testicle measures 3.5 x 1.8 x 2.2 cm, volume 7.1 mL. No focal testicular parenchymal lesions are visualized. Spectral Doppler analysis of the arterial and venous flow is normal in the right testis. 0.4 x 0.4 x 0.4 cm complex cyst with septations versus cluster of cysts in the region of the right epididymal head. Right varicocele. No significant right hydrocele. Right epididymal Doppler flow is normal. LEFT: Left testicle measures 3.3 x 1.9 x 2.6 cm, volume 8.5 mL. There is a 0.3 cm cyst along the medial lower pole of the left testicle, possibly intratesticular, versus extratesticular. Spectral Doppler analysis of the arterial and venous flow is normal in the left testis. Multiple large cystic areas in the region of the left scrotum/epididymis, largest measures 1.9 x 1.7 x 2.1 cm. Visualization of adjacent structures is limited due to the multiple large cystic collections in the left scrotal region. Left epididymis was not visualized with confidence. Differential considerations include fluid collections such as spermatoceles, although service secretary said question varicocele as well, unsure what she means. There is a 0.3 cm cyst along the medial lower pole of the left testicle, possibly intratesticular, versus extratesticular. Left varicocele. IMPRESSION: 1. Multiple large cystic areas in the region of the left scrotum/epididymis, largest measures 1.9 x 1.7 x 2.1 cm. Visualization of adjacent structures is limited due to the multiple large cystic collections in the left scrotal region. Left epididymis was not visualized with confidence. Differential considerations include fluid collections such as spermatoceles. 2. There is a 0.4 x 0.4 x 0.4 cm complex cyst with septations versus cluster of cysts in the region of the right epididymal head. 3. There is a 0.3 cm cyst along the medial lower pole of the left testicle, possibly intratesticular, versus extratesticular. 4. Bilateral varicoceles. Assessment & Plan Assessment & Plan (1) Epididymal cyst: Code(s): N50.3 - Cyst of epididymis Category: Medical (2) Prostate cancer: Code(s): C61 - Malignant neoplasm of prostate Category: Medical (3) Weak urinary stream: Code(s): R39.12 - Poor urinary stream Category: Medical (4) Spermatocele: Code(s): N43.40 - Spermatocele of epididymis, unspecified Category: Medical Plan FU in 6 months. Patient Instructions: The patient had an opportunity to ask questions regarding treatment plan. The patient expressed understanding and agreement with the above treatment plan. The patient is aware they should contact our office by phone for worsening of their current condition or the appearance of new symptoms. Compliance is encouraged with any medications and followup testing that is ordered. It is a privilege to be allowed the opportunity to participate in the urologic care of your patient. If you have any questions or concerns regarding treatment for the above conditions please do not hesitate to contact me. The office telephone contact is [phone]. This note is constructed in part using voice recognition software. While every effort has been made to ensure accuracy furniture sander errors may have been included. Yours sincerely, Jimy Sandoval MD Coding Level of Care Code Tele Est Pt Level 3 (59632) Diagnoses Epididymal cyst N50.3 Prostate cancer C61 Weak urinary stream R39.12 Spermatocele N43.40
== END 2024-05-05 14:58 | disposition home or self-care (01) ==
LOC: HO.HUSH 13:53
PROVIDERS: PCP Physician Assistant Medical; Visit Provider Urology
DX: N50.3 Cyst of epididymis (principal); C61 Malignant neoplasm of prostate; R39.12 Poor urinary stream; N43.40 Spermatocele of epididymis, unspecified
CPT/HCPCS: 99442

== ENCOUNTER → 2024-05-05 13:53 | Outpatient (BNVA) | payer BC, SELFPAY | PROVIDERS: PCP Physician Assistant Medical; Visit Provider Urology ==

== ENCOUNTER 2024-10-09 08:33 | Outpatient (AMB) | payer BC, SELFPAY ==
--- NOTE | 2024-10-09 08:41 | A.OFFVIS_ITS ---
Intake Visit Reasons: Hydrocele concerns Intake Note: Patient is present follow up Scrotal US Results Urology Medications: Alfuzosin Blood Thinner: motrin All Around Gear Machine Operator Required: No Accompanied by: Self / Same As Patient Allergies No Known Allergies Allergy (Verified 10/09/24 09:09) Medication List - Last Reconciled 10/09/24 by Jimy Sandoval MD alfuzosin ER 10 mg PO BEDTIME 90 days amlodipine 5 mg PO DAILY lisinopril 40 mg PO DAILY pravastatin 10 mg PO BEDTIME HPI Comments Details: 10/09/24--Joshua-is here today with concerns regarding minimal semen when he ejaculates. He is on alfuzosin and I have explained to him the mechanism of action and 1 of the side effects include retrograde ejaculation. Examination today epididymal cysts/spermatocele are unchanged. There is no significant swelling of the scrotum. No testicular or scrotal pain. Will continue to monitor clinically. 11/29/23--PSA 0.3. Review of chart: 05/05/24--Telehealth fu to review scrotal US results-04/22/24- discussed that the US results noted that the left scrotal swelling was related to left spermatocele rather than left hydrocele. A tiny 0.3 cm left testicular cyst also noted. Additional findings detailed in report below. Currently to the patient is asymptomatic. Will continue to monitor. 02/07/24---Omid is a 73-year-old male who is here for a 2nd opinion due to scrotal swelling. He states he has had a hydrocele of the left testicle diagnosed several years ago. He states that it was drained 5 years ago by 1 urologist and more recently a few months ago it was drained again in this office. (I have reviewed that note 50 cc of fluid was drained and doxycycline 200 mg was used as a sclerosing agent). He states that he has no scrotal pain. He continues to feel swelling in the area of the left testicle which is concerning to him he is worried about cancer. He was told that there was a cyst in that area. He states he has not had any recent ultrasounds done. The patient has a history of prostate cancer and is on alfuzosin for weak urinary stream. In review of his chart there is a scrotal ultrasound from 2010 which noted epididymal cysts. Examination today both testicles are palpated there is a cystic structure along the course of the epididymis with prominence at the epididymal head on the left side. Scrotal exam is nontender. 40 minutes spent in review of records pertaining to this visit and including [id number] discussion with the patient and documentation of this visit. Review of labs: Total PSA 11/29/2023-- 0.3 ng/mL [facility] Medical History Prostate cancer Hyperlipidemia Accelerated essential hypertension Review of Systems Const All systems reviewed & are unremarkable except as noted in HPI and below Reports no additional complaints Eyes Reports no additional complaints ENT Reports no additional complaints Card Reports no additional complaints Resp Reports no additional complaints GI Reports no additional complaints Reports as per HPI Musc Reports no additional complaints Skin/Breast Reports system reviewed and no additional complaints, except as documented Neuro Reports no additional complaints Psych Reports no additional complaints Endo Reports no additional complaints Anam/Lymph Reports no additional complaints Aller/Immun Reports no additional complaints Results AMB Urinalysis, Automated UA Leukoctes 0 Rashid/uL Last Edit by Lexy Kumari on 10/09/24 09:13 UA Nitrite Negative Last Edit by Lexy Kumari on 10/09/24 09:13 UA Urobilinogen 0.2 mg/dL Last Edit by Lexy Kumari on 10/09/24 09:13 UA Protein 0 mg/dL Last Edit by Lexy Kumari on 10/09/24 09:13 UA pH 6.0 Last Edit by Lexy Barillasr on 10/09/24 09:13 UA Blood 0 Rashaun/uL Last Edit by Lexy Kumari on 10/09/24 09:13 UA Specific [place] 1.020 Last Edit by Lexy Kumari on 10/09/24 09:13 UA Ketone Positive Last Edit by Lexy Kumari on 10/09/24 09:13 UA Bilirubin 0 mg/dL Last Edit by Lexy Kumari on 10/09/24 09:13 UA Glucose 0 mg/dL Last Edit by Lexy Kumari on 10/09/24 09:13 Results Reviewed Results Reviewed: Laboratory Last Values Urine pH (Auto) 6.0 10/09/24 09:10 Specific [place] (Auto) 1.020 10/09/24 09:10 Urine Protein (Auto) 0 mg/dL 10/09/24 09:10 Glucose (UA)(Auto) 0 mg/dL 10/09/24 09:10 Urine Ketones (Auto) Positive 10/09/24 09:10 Urine Blood (Auto) 0 Rashaun/uL 10/09/24 09:10 Urine Nitrite (Auto) Negative 10/09/24 09:10 Urine Bilirubin (Auto) 0 mg/dL 10/09/24 09:10 Urine Urobilinogen (Auto) 0.2 mg/dL 10/09/24 09:10 Leukocyte Esterase (Auto) 0 Rashid/uL 10/09/24 09:10 Date of Service: 04/22/24 US SCROTUM CLINICAL INFORMATION: Hydrocele, unspecified. Left discomfort. COMPARISON: None available. TECHNIQUE: A sonogram of the scrotum was performed assessing chacon-scale appearance and color Doppler flow. Spectral Doppler analysis of the arterial and venous flow were performed in the testes bilaterally. The findings were discussed with carpenter mine, Haley Liang at time of interpretation on FINDINGS: RIGHT: Right testicle measures 3.5 x 1.8 x 2.2 cm, volume 7.1 mL. No focal testicular parenchymal lesions are visualized. Spectral Doppler analysis of the arterial and venous flow is normal in the right testis. 0.4 x 0.4 x 0.4 cm complex cyst with septations versus cluster of cysts in the region of the right epididymal head. Right varicocele. No significant right hydrocele. Right epididymal Doppler flow is normal. LEFT: Left testicle measures 3.3 x 1.9 x 2.6 cm, volume 8.5 mL. There is a 0.3 cm cyst along the medial lower pole of the left testicle, possibly intratesticular, versus extratesticular. Spectral Doppler analysis of the arterial and venous flow is normal in the left testis. Multiple large cystic areas in the region of the left scrotum/epididymis, largest measures 1.9 x 1.7 x 2.1 cm. Visualization of adjacent structures is limited due to the multiple large cystic collections in the left scrotal region. Left epididymis was not visualized with confidence. Differential considerations include fluid collections such as spermatoceles, although carpenter mine said question varicocele as well, unsure what she means. There is a 0.3 cm cyst along the medial lower pole of the left testicle, possibly intratesticular, versus extratesticular. Left varicocele. IMPRESSION: 1. Multiple large cystic areas in the region of the left scrotum/epididymis, largest measures 1.9 x 1.7 x 2.1 cm. Visualization of adjacent structures is limited due to the multiple large cystic collections in the left scrotal region. Left epididymis was not visualized with confidence. Differential considerations include fluid collections such as spermatoceles. 2. There is a 0.4 x 0.4 x 0.4 cm complex cyst with septations versus cluster of cysts in the region of the right epididymal head. 3. There is a 0.3 cm cyst along the medial lower pole of the left testicle, possibly intratesticular, versus extratesticular. 4. Bilateral varicoceles. Assessment & Plan Assessment & Plan (1) Epididymal cyst: Code(s): N50.3 - Cyst of epididymis Category: Medical (2) Prostate cancer: Code(s): C61 - Malignant neoplasm of prostate Category: Medical (3) Weak urinary stream: Code(s): R39.12 - Poor urinary stream Category: Medical (4) Spermatocele: Code(s): N43.40 - Spermatocele of epididymis, unspecified Category: Medical Plan PSA today. Continue to monitor spermatocele/epididymal cyst, no significant scrotal swelling at this time. Follow-up in 1 year Orders: Orders AMB Urinalysis Automated Today Z13.9 - Encounter for screening, unspecified PSA,Total (Free>4and<10) Today C61 - Malignant neoplasm of prostate Medications: Refilled alfuzosin ER Take before bedtime 10 mg PO BEDTIME 90 days 90 tabs 3RF N32.0 - Bladder- neck obstruction, N40.1 - Benign prostatic hyperplasia with lower urinary tract symptoms, R33.9 - Retention of urine, unspecified, R35.1 - Nocturia, R39.12 - Poor urinary stream Patient Instructions: The patient had an opportunity to ask questions regarding treatment plan. The patient expressed understanding and agreement with the above treatment plan. The patient is aware they should contact our office by phone for worsening of their current condition or the appearance of new symptoms. Compliance is encouraged with any medications and followup testing that is ordered. It is a privilege to be allowed the opportunity to participate in the urologic care of your patient. If you have any questions or concerns regarding treatment for the above conditions please do not hesitate to contact me. The office telephone contact is [phone]. This note is constructed in part using voice recognition software. While every effort has been made to ensure accuracy shipwright errors may have been included. Yours sincerely, Jimy Sandoval MD Coding Level of Care Code Est Pt Level 4 (94459) Diagnoses Epididymal cyst N50.3 Prostate cancer C61 Weak urinary stream R39.12 Spermatocele N43.40
== END 2024-10-09 09:31 | disposition home or self-care (01) ==
PROVIDERS: PCP Physician Assistant Medical; Visit Provider Urology
DX: N50.3 Cyst of epididymis (principal); C61 Malignant neoplasm of prostate; R39.12 Poor urinary stream; N43.40 Spermatocele of epididymis, unspecified; Z13.9 Encounter for screening, unspecified
CPT/HCPCS: 99214

== ENCOUNTER → 2024-10-09 08:33 | Outpatient (BNVA) | payer BC, SELFPAY | PROVIDERS: PCP Physician Assistant Medical; Visit Provider Urology | DX: N50.3 Cyst of epididymis (principal); N43.40 Spermatocele of epididymis, unspecified; C61 Malignant neoplasm of prostate; R39.12 Poor urinary stream; Z79.899 Other long term (current) drug therapy | CPT/HCPCS: 81003 ==

== ENCOUNTER 2025-10-08 10:07 | Outpatient (AMB) | payer BC, SELFPAY ==
--- OUTSIDE RECORDS SUMMARY | 2025-10-07 12:05 | XMS_ITS | Encounter Summary ---
Author Organization [facility] Address [address] [place] [address] Care Team Providers Care Tombstone Carver Name Role Phone Kamlesh Kim Primary Care Provider [phone] Encounter Details Date Type Department Care Team (Late st Contact Info) Description 10/07/2025 12:05 PM EST Lab Draw Station - [address] [phone] Elevated PSA Social History Tobacco Use Types Packs/Day Years Used Date Smoking Tobacco: Former Cigarettes 0.5 19 0 12/11/1972 - 11/26/1991 Smokeless Tobacco: Never Alcohol Use Standard Drinks/Week Comments No 0 (1 standard drink = 0.6 oz pur e alcohol) none Housing Instability Answer Date Recorde d Are you worried that in the next 2 months you may not have stable housing? No 05/20/2025 Food Access & Nutrition Answer Date Rec orded Do you have access to a vari ety of food including fruits and vegetables? Yes 05/20/2025 Health Literacy Answer Date Recorded How often do you need to hav e someone help you when you read instructions, pamphlets, or other written material from your doctor or pharmacy? Never 05/20/2025 Caregiver: How often do you need to have someone help you when you read instructions, pamphlets, or other written material from your doctor or pharmacy? Not on file 05/20/2025 Financial Risk Answer Date Recorded How hard is it for you to pa y for the very basics like food, housing, medical care, and air conditioning / heating? Not very hard 05/20/2025 Transportation Answer Date Recorded Has the lack of transportati on kept you from meetings, work, or from getting things needed for daily living? No Has the lack of transportati on kept you from medical appointments or from getting medications? No 05/20/2025 Social Isolation Answer Date Recorded How often do you feel lonely or isolated from th ose around you? Never 05/20/2025 Food Risk Answer Date Recorded Within the past 12 months we worried whether our food would run out before we got money to buy more. Never true 05/20/2025 Within the past 12 months th e food we bought just didn't last and we didn't have money to get more. Never true 05/20/2025 Dependent Care Answer Date Recorded Do you need help finding or paying for care for your loved ones. For example, children's service supervisor or elderly care for an older adult? No 05/20/2025 Education Answer Date Recorded Do you think completing more education or training, like finishing a GED, going to college, or learning a trade, would be helpful for you? No 05/20/2025 Employment and Income Answer Date Recor ded During the last four weeks, have you been actively looking for work? No 05/20/2025 Living Situation Answer Date Recorded What is your living situation? 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 Not on file Not on file Not on file documented as of this encounter Plan of Treatment Upcoming Encounters Date Type Department Care Team (Late st Contact Info) Description 11/02/2025 2:30 PM EST Office Visit Adult Medicine [address] [phone] Kamlesh Kim PA [address] [place] [phone] 11/25/2025 1:30 PM EST Office Visit Orthopedic Surgery - [address] [phone] Narciso Mustafa MD [address] [address] 06/16/2026 10:30 AM EDT Office Visit Orthopedic Surgery - [place] [address] [phone] Narciso Mustafa MD [address] [address] documented as of this encounter Procedures Procedure Name Priority Date/Time Associated Diagnosis Comments PSA TOTAL, FREE AND COMPLEXED, DIAGNOSTIC Routine 10/07/2025 12:04 PM EST Elevated PSA documented in this encounter Results * (ABNORMAL) PSA total, free and complexed (10/07/2025 12:04 PM EST) PSA 0.26 0.00 - 4.00 ng/mL LAB CHEMISTRY METHOD 10/07/2025 3:10 PM [facility] PSA, Complexed 0.22 0.00 - 3.00 ng/mL LAB CHEMISTRY METHOD 10/07/2025 3:10 PM EST [facility] PSA, Free 0.0 ng/mL LAB CHEMISTRY METHOD 10/07/2025 3:10 PM [facility] PSA, Free Pct 0.0(L) >25.0 % LAB CHEMISTRY METHOD 10/07/2025 3:10 PM [facility] Blood Venous blood specimen / Unknown Venipuncture / Unknown 10/07/2025 12:04 PM EST 10/07/2025 12:04 PM EST [facility] - 10/07/2025 3:10 PM EST Free PSA is a calculated value. The diagnostic usefulness of % free PSA has not been established in patients with Total PSA below 2.6 or above 10 ng/mL. This test was performed using the Centaur Chemiluminescent method. PSA values obtained with other methods cannot be used interchangeably. Kamlesh [facility] LAB BLOOD ORDERABLES Stephanie rouse Result [facility] [address] [place] [address], documented in this encounter Visit Diagnoses Diagnosis Elevated PSA Elevated prostate specific antigen (PSA) documented in this encounter Care Teams Tombstone Carver Relationship Specialty Start Date End Date Kamlesh Kim, UMA [address] [place] [phone] PCP - General Internal Medicine 02/08/21 documented as of this encounter
--- NOTE | 2025-10-08 10:23 | MHC.OFFVIS ---
Intake Visit Reasons: 1y/labs Intake Note: Patient is present for a 1yr follow up with labs 10/07 PSA:0.26 Urology Medications:Alfuzosin Blood Thinner:None Antibiotic Allergy:None Lighting Fixture Installer Required: No Accompanied by: Self / Same As Patient Allergies No Known Allergies Allergy (Verified 10/08/25 10:30) HPI Comments Details: 10/08/25--Joshua is in a 75-year-old male who is followed for BPH symptoms he is prescribed alfuzosin. 10/09/24--Joshua-is here today with concerns regarding minimal semen when he ejaculates. He is on alfuzosin and I have explained to him the mechanism of action and 1 of the side effects include retrograde ejaculation. Examination today epididymal cysts/spermatocele are unchanged. There is no significant swelling of the scrotum. No testicular or scrotal pain. Will continue to monitor clinically. 11/29/23--PSA 0.3. Review of chart: 05/05/24--Telehealth fu to review scrotal US results-04/22/24- discussed that the US results noted that the left scrotal swelling was related to left spermatocele rather than left hydrocele. A tiny 0.3 cm left testicular cyst also noted. Additional findings detailed in report below. Currently to the patient is asymptomatic. Will continue to monitor. 02/07/24---Omid is a 73-year-old male who is here for a 2nd opinion due to scrotal swelling. He states he has had a hydrocele of the left testicle diagnosed several years ago. He states that it was drained 5 years ago by 1 urologist and more recently a few months ago it was drained again in this office. (I have reviewed that note 50 cc of fluid was drained and doxycycline 200 mg was used as a sclerosing agent). He states that he has no scrotal pain. He continues to feel swelling in the area of the left testicle which is concerning to him he is worried about cancer. He was told that there was a cyst in that area. He states he has not had any recent ultrasounds done. The patient has a history of prostate cancer and is on alfuzosin for weak urinary stream. In review of his chart there is a scrotal ultrasound from 2010 which noted epididymal cysts. Examination today both testicles are palpated there is a cystic structure along the course of the epididymis with prominence at the epididymal head on the left side. Scrotal exam is nontender. 40 minutes spent in review of records pertaining to this visit and including [id number] discussion with the patient and documentation of this visit. Review of labs: Total PSA 11/29/2023-- 0.3 ng/mL [facility] Medical History Prostate cancer Hyperlipidemia Accelerated essential hypertension Results AMB Urinalysis, Automated UA Leukoctes 0 Rashid/uL Last Edit by Zhanna Diaz on 10/08/25 15:38 UA Nitrite Negative Last Edit by Zhanna Diaz on 10/08/25 15:38 UA Urobilinogen 0.2 mg/dL Last Edit by Zhanna Diaz on 10/08/25 15:38 UA Protein 15 mg/dL Last Edit by Zhanna Diaz on 10/08/25 15:38 UA pH 6.0 Last Edit by Zhanna Diaz on 10/08/25 15:38 UA Blood 0 Rashaun/uL Last Edit by Zhanna Diaz on 10/08/25 15:38 UA Specific [place] 1.015 Last Edit by Zhanna Diaz on 10/08/25 15:38 UA Ketone Negative Last Edit by Zhanna Diaz on 10/08/25 15:38 UA Bilirubin 0 mg/dL Last Edit by Zhanna Diaz on 10/08/25 15:38 UA Glucose 0 mg/dL Last Edit by Zhanna Diaz on 10/08/25 15:38 Assessment & Plan Assessment & Plan Orders: Orders AMB Urinalysis Automated Today Z13.9 - Encounter for screening, unspecified Coding
--- OUTSIDE RECORDS SUMMARY | 2025-10-08 12:09 | XMS_ITS | Encounter Summary ---
Author Organization [facility] Address [address] [place] [address] Care Team Providers Care Stripper And Opaquer Apprentice Name Role Phone Kamlesh Kim Primary Care Provider [phone] Encounter Details Date Type Department Care Team (Late st Contact Info) Description 10/07/2025 Results Follow-Up Adult Medicine [address] [phone] Kamlesh Kim PA [address] [place] [phone] Social History Tobacco Use Types Packs/Day Years [...] care for your loved ones. For example, teacher early childhood development or elderly care for an older adult? [...] 2:30 PM EST Office Visit Adult Medicine [address] [phone] Kamlesh Kim PA [address] [place] [phone] 11/25/2025 1:30 PM EST Office Visit Orthopedic Surgery [place] [id number] [phone] Narciso Mustafa MD [address] [address] 06/16/2026 10:30 AM EDT Office Visit Orthopedic Surgery [place] [address] [phone] Narciso Mustafa MD [address] [address] documented as of this encounter Visit Diagnoses Not on filedocumented in this encounter Care Teams Stripper And Opaquer Apprentice Relationship Specialty Start Date End Date Kamlesh Kim PA [address] [place] [phone] PCP - General Internal Medicine 02/08/21 documented as of this encounter
--- OUTSIDE RECORDS SUMMARY | 2025-10-08 12:10 | XMS_ITS | Clinical Summary ---
Author Organization 175 [facility] Address [address] [place] [address] Phone Care Team Providers Care Career Coordinator Name Role Phone Kamlesh Kim Primary Care Provider [phone] Allergies No known active allergies Medications alfuzosin (UROXATRAL) 10 mg 24 hr tablet 02/01/20 24 Active glucosamine mercado 2KCl-chondroit 500-400 mg capsule Take 1 capsule by mouth. Active glucosamine HCl 500 mg tablet Take by mouth 1 (one) time each day. Active magnesium oxide 400 mg magnesium capsule Take 400 mg by mouth. Active multivitamin with minerals (MULTIPLE VITAMIN-MINERALS ORAL) Take by mouth daily Active turmeric, bulk, 95 % powder Take by mouth 1 (one) time each day. Active magnesium 250 mg tablet Take by mouth 1 (one) time each day. Active lidocaine (LIDODERM) 5 % patch APPLY 1 PATCH TOPICALLY 1 (ONE) TIME EACH DAY. APPLY FOR NO MORE THAN 12 HOURS IN ANY 24 HOUR PERIOD 30 patch 1 01/15/20 25 Active senna-docusate (PERICOLACE) 8.6-50 mg per tablet Take 2 tablets by mouth at bedtime. 60 tablet 06/08/20 25 Active acetaminophen (Tylenol Extra Strength) 500 mg tabletIndications :Primary osteoarthritis of right knee,Status post right partial knee replacement Take 2 tablets (1,000 mg total) by mouth every 8 (eight) hours. 100 tablet 3 06/16/20 25 Active celecoxib (CeleBREX) 200 mg capsuleIndication s:Primary osteoarthritis of right knee,Status post right partial knee replacement Take 1 capsule (200 mg total) by mouth 2 (two) times a day. 84 capsule 07/20/20 25 Active pravastatin (PRAVACHOL) 10 mg tabletIndications :Mixed hyperlipidemia TAKE 1 TABLET BY MOUTH EVERY DAY 90 tablet 3 08/10/20 25 Active lisinopril (PRINIVIL,ZESTRIL ) 40 mg tabletIndications :Mixed hyperlipidemia,Es sential (primary) hypertension TAKE 1 TABLET BY MOUTH EVERY DAY 90 tablet 08/25/20 25 Active amLODIPine (NORVASC) 5 mg tabletIndications :Mixed hyperlipidemia,Es sential (primary) hypertension TAKE 1 TABLET BY MOUTH EVERY DAY 90 tablet 08/25/20 25 Active ondansetron (ZOFRAN) 8 mg tablet Take 1 tablet (8 mg total) by mouth every 8 (eight) hours if needed for nausea or vomiting. 20 tablet 06/08/20 25 025 Discontinued traMADoL (ULTRAM) 50 mg tabletIndications :Primary osteoarthritis of right knee,Status post right partial knee replacement Take 1 tablet (50 mg total) by mouth every 8 (eight) hours if needed for severe pain or moderate pain. Max Daily Amount: 150 mg 18 tablet 08/13/20 25 025 Discontinued Active Problems Problem Noted Date Diagnosed Date Status post right partial knee replacement 06/16 Abdominal aortic aneurysm (A AA) without rupture ([facility] V24) 01/31/2025 ACL laxity, right 12/31/2023 Spinal stenosis of lumbar re gion without neurogenic claudication 04/26/2023 Overview (10/17/2024): Last Assessment & Plan: Mr. Saunders is here for second postop visit since an L4-5 decompression with facet arthrodesis on 05/22/2023. He had complete relief of the back pain radiating into his buttocks after surgery but was mindful to follow instructions, avoid heavy activity and wore his lumbar corset for the subsequent 6 weeks. He has started doing some crunches and increasing his activity, he is now able to walk up to 1 mile. On exam, his incision is well-healed with a small swelling at the cranial and, typical of muscle. Seated SLR is negative, strength 5/5, sensation light touch intact, gait is steady. Review of the AP/lateral and flexion/extension x-rays from today show hyperdensity at the L4-5 facets bilaterally without instability. This will likely progress to solid fusion. He need not wear his corset daily any longer and he can resume more of his activities. He is welcome to follow-up with us in the future if there are any new concerns. Acute right-sided low back pain with right-sided sciatica 02/02/2023 Overview (10/17/2024): Last Assessment & Plan: Mr. Saunders is suffering with low back pain particularly when he moves quick or when he first gets up in the morning. He has widely splayed facets at L4-5. I reviewed the situation with Dr. Berg who recommended L4-5 facet joint injections. We will arrange. Assessment & Plan (03/19/2025 3:35 PM EDT): I reviewed the imaging findings in detail with Mr. Saunders. He does have significant right L4 foraminal stenosis from a disc herniation which could cause some back pain though less likely to the buttock. He demonstrates this in the region of the SI joint so this could have been a flareup of sacroiliitis as the pain did not radiate any further down his legs in the upper buttock. He is on meloxicam which would have helped to treat sacroiliitis. At this point, he is pain-free other than some limitations at the right knee. He is free to exercise and continue his medications at the current dose. If he has another flareup of symptoms, we can consider further options. Assessment & Plan (01/14/2025 3:40 PM EST): Mr. Saunders describes about 1 month of right sided low back pain with radiation around to the right hip. He is about 20 months status post L4-5 decompression with facet arthrodesis. Denies any fevers, shakes, or chills. He is concerned that something broke free in his fusion. I am going to send him for some x-rays which I will then review with Dr. Berg before discussing next steps with him. He agreed with the plan. Spondylolisthesis of lumbar region 02/02/2023 Overview (10/17/2024): Last Assessment & Plan: Mr. Saunders went for bilateral L4-5 facet injections after his last visit. He says he had 2-1/2 to 3 weeks of relief and then the pain came back full force. He describes pain in the low back with radiation to the bilateral buttocks. His MRI from December 2021 shows about a 7 mm slip at L5-S1 and the x-rays from his last visit show about a 12 mm slip. There was no significant movement or instability on flexion extension films, but the patient really did not move very much. I reviewed the situation with Dr. Berg and she recommended getting a new MRI of the lumbar spine to see what has changed. 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 Ganglion, right wrist 12/11/2018 Essential hypertension 09/12/2018 External hemorrhoid 09/12/2018 Prostate cancer ([facility] V24, [facility] V28) 05/14 Overview (10/17/2024): radiation Hydrocele 12/12/2013 Overview (10/17/2024): Left scrotum being observed Impaired fasting glucose 04/07/2011 Mixed hyperlipidemia 04/07/2011 Shoulder injury 01/26/2009 Resolved Problems Problem Noted Date Diagnosed Date Resolved Date Primary osteoarthritis of right knee 05/27/2021 07/30/2025 Encounters Date Type Department Care Team Description 10/07/2025 12:05 PM EST Lab Draw Station [address] Elevated PSA 10/07/2025 Results Follow-Up Adult Medicine [address] [phone] Kamlesh Kim PA 10/01/2025 Telephone Adult Medicine [address] [phone] Kamlehs Kim PA 09/16/2025 11:30 AM EDT Office Visit Orthopedic Surgery [facility] [address] [phone] Narciso Mustafa MD Status post right partial knee replacement (Primary Dx) 08/19/2025 Telephone Orthopedic Surgery [facility] [address] [phone] Peg Nix, SUKI 08/13/2025 Telephone Orthopedic Surgery [facility] [address] [phone] Peg Nix RN 08/03/2025 Telephone Orthopedic Surgery [facility] [address] [phone] Peg Nix RN 07/30/2025 9:00 AM EDT Office Visit [facility] [address] [phone] Narciso Mustafa MD Status post right partial knee replacement (Primary Dx) 07/23/2025 [place] [facility] [address] [phone] Peg Nix RN 07/21/2025 [place] [facility] [address] [phone] Narciso Mustafa MD from Last 3 Months Immunizations Immunization Administration Dates Next Due H1N1 Inj Preservative Free 11/23/2009 Influenza Quadravalent, 0.5m l (Fluad) 65yo and older 09/11/2023,09/13/2022 Influenza Quadravalent, MDCK , 0.5ml, with preservative (Flucelvax) 6mo and older 10/10/2017 Influenza trivalent, 0.5mL ( Fluad) 65yo and older 09/09/2024 Influenza trivalent, 0.5mL ( Fluzone High-dose) 65yo and older 08/26/2025,09/08/2021,08/25/2020,09/18,09/12/2018 Influenza trivalent, with pr eservative (Fluzone; Afluria) 6mo and older 10/15/2016,11/04/2014,10/02/2013,10/02,10/03/2011,10/04/2010,08/26/2009 ,09/17/2007,10/11/2005 Moderna Covid-19 Bivalent, O riginal + Ba.1 (Non-US Tradename Spikevax Bivalent) 08/26/2025 Moderna SARS-CoV-2 COVID-19, mRNA, LNP-S, preservative free 02/05/2021,01/08/2021 Pneumococcal conjugate 13 va lent (Prevnar 13, PCV13) 2mo and older 03/17/2015 Pneumococcal polysaccharide 23 valent (Pneumovax 23) 2yo and older 01/16/2017 RSV, bivalent, protein subun it RSVpreF, 0.5mL, Preservative Free (ABRYSVO) 50yo and older or 32 through 36 wks of 09/10/2024 Td Tetanus diptheria (Tdvax) 7yo and older 07/16/2017 Tdap Tetanus diptheria acell ular pertussis (Boostrix; Adacel) 7yo and older 10/30/2024,03/01/2007 Zoster Live 12/12/2013 Surgical History Surgery Date Site/Laterality Comments TONSILLECTOMY PROCEDURE: HISTORICAL TONSILLECTOMY OTHER SURGICAL HISTORY BCC 10/09 left forehead (nodular) COLONOSCOPY 06/17/2007 PROCEDURE: HISTORICAL COLONOSCOPY; COMMENT: normal; repeat in ten years COLONOSCOPY W/ POLYPECTOMY 06/20/2017 PROCEDURE: [place] COLSC FLX W/RMVL OF TUMOR POLYP LESION SNARE TQ; COMMENT: 4 mm polyp not recovered in specimen bottle; radiation proctitis. Repeat in 5 yrs HERNIA REPAIR 08/2020 Bilateral PROCEDURE: REPAIR INGUINAL HERNIA; COMMENT: dr. belle APPENDECTOMY PROCEDURE: [place] APPENDECTOMY COLONOSCOPY 12/04/2022 PROCEDURE: HISTORICAL COLONOSCOPY; COMMENT: muslu -1 polyp repeat 5 years BACK SURGERY 04/2023 dr. berg - L4-5 decompression with right-sided discectomy and arthrodesis of the right sided L4-5 facet joint. Medical History Medical History Date Comments Personal history of colonic polyps 03/01/2007 DX:Personal history of colonic polyps Scoliosis DX:Scoliosis; CO MMENT: dextroscoliosis thoracic spine Impaired fasting glucose 04/07/2011 DX:Impa ired fasting glucose Mixed hyperlipidemia 04/07/2011 DX:Mixed hy perlipidemia Hydrocele 12/12/2013 DX:Hydrocele; CO MMENT: Left scrotum being observed Prostate cancer (CMS/HCC V24 , CMS/HCC V28) 05/14/2015 DX:Prostate cancer (HCC) Essential hypertension 09/12/2018 DX:Essent ial hypertension History of basal cell carcinoma DX:History of basal cell carcinoma; COMMENT: BCC 10/09 left forehead (nodular) Osteoarthritis of carpometac arpal (CMC) joint of right thumb DX:Osteoarthritis of carpom etacarpal (CMC) joint of right thumb Anxiety Family History Medical History Relation Name Comments Colon cancer Brother 1 Lung cancer Brother 2 Other: at 86 Father Other: brain tumor Mother Other: heart dz Mother IN Blindness Neg Hx Cataracts Neg Hx Glaucoma Neg Hx Macular degeneration Neg Hx Strabismus Neg Hx Relation Name Status Comments Brother 1 lung cancer Brother 2 Brother 3 Alive Father (Age 88) DM Mother CABG, brain seven or Sister 1 Alive DM Sister 2 Alive Sister 3 Alive Social History Tobacco Use Types Packs/Day Years Used Date Smoking Tobacco: Former Cigarettes 0.5 19 0 12/11/1972 - 11/26/1991 Smokeless Tobacco: Never Tobacco Cessation:Counseling Given: Not Answered Alcohol Use Standard Drinks/Week Comments No 0 [...] care for your loved ones. For example, child support agent or elderly care for an older adult? [...] file Not on file Not on file Obstetrics History Last Filed Vital Signs Vital Sign Reading Time Taken Comments Blood Pressure 117/88 06/08/2025 11:30 AM EDT Pulse 70 06/08/2025 11:30 AM EDT Temperature 36.5 C (97.7 F) 06/08/2025 11:30 AM EDT Respiratory Rate 20 06/08/2025 11:30 AM EDT Oxygen Saturation 96% 06/08/2025 11:30 AM EDT Inhaled Oxygen Concentration - - Weight 89.8 kg (198 lb) 06/08/2025 6:38 AM EDT Height 177.8 cm (5' 10 ) 06/08/2025 6:38 AM EDT Body Mass Index 28.41 06/08/2025 6:38 AM EDT Plan of Treatment Upcoming Encounters Date Type Department Care Team (Late st Contact Info) Description 11/02/2025 2:30 PM EST Office Visit [address] [phone] Kamlesh Kim PA [address] [place] [phone] 11/25/2025 1:30 PM EST Office Visit Orthopedic Surgery [place] [phone] [phone] Narciso Mustafa MD [address] [phone] 06/16/2026 10:30 AM EDT Office Visit Orthopedic [place] [address] [phone] Narciso Mustafa MD [address] [phone] Health Maintenance Due Date Last Done Comments Zoster Vaccines (1 of 2) 02/06/2014 12/12/2013 Depression Screening 11/26/2024 Falls Risk Assessment 12/31/2025 12/31/2024 COVID-19 Vaccine (9 - Moderna risk season) 2026 08/26/2025, 10/30/2024, 09/11/2023, Additional history exists Social Influencers of Health Screening 05/20/2026 05/20/2025 Hypertension/CHF/CAD Annual BMP Blood Test 05/21/2026 05/21/2025, 06/26/2024, 06/26/2024 Colorectal Cancer Screening: Colonoscopy 12/04/2027 12/04/2022 Cholesterol Screening (Lipid Panel) 05/21/2030 05/21/2025, 06/26/2024, 06/26/2024 DTaP,Tdap,and Td Vaccines (4 - Td or Tdap) 10/30/2034 10/30/2024, 07/16/2017, 03/01/2007 Hepatitis C Screening Completed 03/17/2015 Pneumococcal Vaccine: 50+ Years Completed 01/16/2017, 03/17/2015 RSV Immunization Adult Patients Completed 09/10/2024 Abdominal Aortic Aneurysm (AAA) Screen Discontinued 02/04/2025, 10/03/2021 Influenza Vaccine Completed 08/26/2025, , 09/11/2023, Additional history exists HIB Vaccines Aged Out No longer eligi ble based on patient's age to complete this topic HPV Vaccines Aged Out No longer eligi ble based on patient's age to complete this topic Hepatitis A Vaccines Aged Out No long er eligible based on patient's age to complete this topic Hepatitis B Vaccines Aged Out No long er eligible based on patient's age to complete this topic IPV Vaccines Aged Out No longer eligi ble based on patient's age to complete this topic MMR Vaccines Aged Out No longer eligi ble based on patient's age to complete this topic Meningococcal ACWY Vaccine Aged Out N o longer eligible based on patient's age to complete this topic Meningococcal B Vaccine Aged Out No l onger eligible based on patient's age to complete this topic RSV Immunization Patients Under 20 months Aged Out No longer eligible based on patient's age to complete this topic Varicella Vaccines Aged Out No longer eligible based on patient's age to complete this topic Medical Devices Implanted Type Area Superintendent Cemetery Device Identifier Shelf Expiration Date Model / Serial / Lot Cement Bone Simplex Full Dose - Sn/A - [id number] Implanted:Qty: 1 on 06/08/2025 by Narciso Mustafa MD at [facility] Bone Cement Right: Knee [employer] 09/25/2027 [id number] / N/A / [id number] Guide Screw 48mm Mis Headed Zuk Mis Quad-Sparing Str - Sn/A - [id number] Implanted:Qty: 1 on 06/08/2025 by Narciso Mustafa MD at [facility] Joints Knee Right: Knee [employer] [id number] 03/06/2035 [id number] / N/A / [id number] Xp Unicond Cement Tibial Knee Rm - Sn/A - [id number] Implanted:Qty: 1 on 06/08/2025 by Narciso Mustafa MD at [facility] Joints Knee Right: Knee [employer] [id number] 02/16/2035 [id number] / N/A / [id number] Component Femoral Sz5 R Persona Merrillan Chrome Rt Cemented - Sn/A - [id number] Implanted:Qty: 1 on 06/08/2025 by Narciso Mustafa MD at [facility] Joints Knee Right: Knee [employer] [id number] 02/25/2035 [id number] / N/A / [id number] Insert Tibial G Vivacit-E Persona Knee Right 8mm - Sn/A - [id number] Implanted:Qty: 1 on 06/08/2025 by Narciso Mustafa MD at [facility] Joints Knee Right: Knee [employer] [id number] 04/29/2029 [id number] / N/A / [id number] 2.8 Hex Screw Implanted:Qty: 1 on 06/08/2025 by Narciso Mustafa MD at [facility] Right: Knee [employer] 04/24/2035 / N/A / [id number] 2.8x32mm Hex Screw Implanted:Qty: 1 on 06/08/2025 by Narciso Mustafa MD at [facility] Right: Knee [employer] 01/06/2035 / N/A / [id number] Persona Uni Fem Persona Uni Tibia Suface Implanted:Qty: 1 on 06/08/2025 by Narciso Mustafa MD at [facility] Right: Knee [employer] [id number] / N/A / N/A Procedures Procedure Name Priority Date/Time Associated Diagnosis Comments PSA TOTAL, FREE AND COMPLEXED, DIAGNOSTIC Routine 10/07/2025 12:04 PM EST Elevated PSA COMPREHENSIVE METABOLIC PANEL Routine 05/21/2025 12:27 PM EDT Routine general medical examination at a health care facility Essential hypertension Chronic bilateral low back pain without sciatica Erectile dysfunction, unspecified erectile dysfunction type Fatty liver Mixed hyperlipidemia Prostate cancer (CMS/HCC V24, CMS/HCC V28) LIPID PANEL WITH REFLEX TO DIRECT LDL Routine 05/21/2025 12:27 PM EDT Routine general medical examination at a health care facility Essential hypertension Chronic bilateral low back pain without sciatica Erectile dysfunction, unspecified erectile dysfunction type Fatty liver Mixed hyperlipidemia Prostate cancer (CMS/HCC V24, CMS/HCC V28) ABDOMEN AORTIC ANEURYSM SCREENING Routine 02/04/2025 11:05 AM EDT Abdominal aortic aneurysm (AAA) without rupture, unspecified part (CMS/HCC V24) COLONOSCOPY Routine 12/04/2022 HEPATITIS C SCREENING Routine 03/17/2015 from Last 3 Months or Most Recently Relevant to Health Maintenance Results * (ABNORMAL) PSA total, free and complexed (10/07/2025 12:04 PM EST) PSA 0.26 0.00 - 4.00 ng/mL LAB CHEMISTRY METHOD 10/07/2025 3:10 PM EST [facility] PSA, Complexed 0.22 0.00 - 3.00 ng/mL LAB CHEMISTRY METHOD 10/07/2025 3:10 PM EST [facility] PSA, Free 0.0 ng/mL LAB CHEMISTRY METHOD 10/07/2025 3:10 PM EST [facility] PSA, Free Pct 0.0(L) >25.0 % LAB CHEMISTRY METHOD 10/07/2025 3:10 PM EST [facility] Blood Venous blood specimen / Unknown Venipuncture / Unknown 10/07/2025 12:04 PM EST 10/07/2025 12:04 PM EST Narrative [facility] - 10/07/2025 3:10 PM EST Free PSA is a calculated value. The diagnostic usefulness of % free PSA has not been established in patients with Total PSA below 2.6 or above 10 ng/mL. This test was performed using the Centaur Chemiluminescent method. PSA values obtained with other methods cannot be used interchangeably. Kamlesh EATON LAB BLOOD ORDERABLES Stephanie rouse Result [facility] [address] [place] [address], [place] [phone] * (ABNORMAL) Lipid panel with reflex to direct LDL (05/21/2025 12:27 PM EDT) Cholesterol 169 0 - 200 mg/dL LAB CHEMISTRY METHOD 05/21/2025 4:35 PM EDT [facility] Triglycerides 205(H) 0 - 150 mg/dL LAB CHEMISTRY METHOD 05/21/2025 4:35 PM EDT [facility] HDL 42 >=40 mg/dL LAB CHEMISTRY METHOD 05/21/2025 4:35 PM EDT [facility] LDL Calculated 86 0 - 100 mg/dL LAB CHEMISTRY METHOD 05/21/2025 4:35 PM EDT [facility] VLDL Cholesterol Haris 41 mg/dL LAB CHEMISTRY METHOD 05/21/2025 4:35 PM EDT [facility] Non HDL Chol. (LDL+VLDL) 127 <145 mg/dL LAB CHEMISTRY METHOD 05/21/2025 4:35 PM EDT [facility] Chol/HDL Ratio 4.0 0.0 - 4.4 LAB CHEMISTRY METHOD 05/21/2025 4:35 PM T [facility] Blood Venous blood specimen / Unknown Venipuncture / Unknown 05/21/2025 12:27 PM EDT 05/21/2025 12:27 PM EDT Kamlesh EATON LAB BLOOD ORDERABLES Stephanie l Result [facility] [address] [place] [address], * Comprehensive metabolic panel (05/21/2025 12:27 PM EDT) Sodium 142 133 - 145 mmol/L LAB CHEMISTRY METHOD 05/21/2025 4:35 PM [facility] Potassium 4.2 3.5 - 5.5 mmol/L LAB CHEMISTRY METHOD 05/21/2025 4:35 PM [facility] Chloride 109 96 - 110 mmol/L LAB CHEMISTRY METHOD 05/21/2025 4:35 PM [facility] CO2 28 21 - 32 mmol/L LAB CHEMISTRY METHOD 05/21/2025 4:35 PM [facility] Anion Gap 5 3 - 11 LAB CHEMISTRY METHOD 05/21/2025 4:35 PM [facility] Glucose 97 70 - 100 mg/dL LAB CHEMISTRY METHOD 05/21/2025 4:35 PM [facility] BUN 24 5 - 25 mg/dL LAB CHEMISTRY METHOD 05/21/2025 4:35 PM [facility] Creatinine 0.89 0.70 - 1.30 mg/dL LAB CHEMISTRY METHOD 05/21/2025 4:35 PM [facility] eGFR 89 >=60 mL/min/1. 73m2 LAB CHEMISTRY METHOD 05/21/2025 4:35 PM [facility] Comment:Calculation based on the Chronic Kidney Disease Epidemiology Collaboration (CKD-EPI) equation refit without adjustment for race. BUN/Creatinine Ratio 27.0 LAB CHEMISTRY METHOD 05/21/2025 4:35 PM [facility] Calcium 8.9 8.5 - 10.5 mg/dL LAB CHEMISTRY METHOD 05/21/2025 4:35 PM EDT [facility] AST (SGOT) 23 10 - 42 unit/L LAB CHEMISTRY METHOD 05/21/2025 4:35 PM EDT [facility] ALT (SGPT) 26 10 - 60 unit/L LAB CHEMISTRY METHOD 05/21/2025 4:35 PM EDT [facility] Alkaline Phosphatase 73 42 - 121 unit/L LAB CHEMISTRY METHOD 05/21/2025 4:35 PM EDT [facility] Total Protein 6.5 6.0 - 8.0 g/dL LAB CHEMISTRY METHOD 05/21/2025 4:35 PM EDT [facility] Albumin 4.1 3.2 - 5.0 g/dL LAB CHEMISTRY METHOD 05/21/2025 4:35 PM EDT [facility] Total Bilirubin 0.5 0.0 - 1.4 mg/dL LAB CHEMISTRY METHOD 05/21/2025 4:35 PM EDT [facility] Blood Venous blood specimen / Unknown Venipuncture / Unknown 05/21/2025 12:27 PM EDT 05/21/2025 12:27 PM EDT Kamlesh EATON LAB BLOOD ORDERABLES Stephanie l Result [facility] [address] [place] [address], * US Abdomen Aortic Aneurysm Screening (02/04/2025 11:05 AM EDT) Anatomical Region Laterality Modality Abdominal aorta Ultrasound 02/04/2025 2:27 PM EDT Impressions 02/04/2025 2:44 PM EDT Mild fusiform aneurysmal dilatation of the distal abdominal aorta, measuring 3 cm AP. -------- FINAL REPORT -------- Dictated By: Sanya York Dictated Date: 02/04/2025 14:27 ET Assigned Physician: Sanya York Reviewed and Electronically Signed By: Sanya York Signed Date: 02/04/2025 14:44 ET Workstation ID: [id number] Transcribed By: Self Edit Transcribed Date: 02/04/2025 14:27 ET Narrative 02/04/2025 2:44 PM EDT PROCEDURE: Abdominal aortic ultrasound. HISTORY: AAA screening, smoking history (Age >= 50y) possible AAA on xray. TECHNIQUE: Grayscale and color Doppler ultrasound evaluation of the abdominal aorta. COMPARISON: CT dated 02/17/2017. FINDINGS: Mild diffuse luminal irregularity of the abdominal aorta. The proximal aorta measures 2.8 cm AP. The mid aorta measures 2.5 cm AP. Fusiform dilatation of the distal aorta measuring 3 cm AP. The right common iliac artery measures 1.6 cm AP. The left measures 1.3 cm AP. Procedure Note Sanya York MD - 02/04/2025 PROCEDURE: Abdominal aortic ultrasound. HISTORY: AAA screening, smoking history (Age >= 50y) possible AAA on xray. TECHNIQUE: Grayscale and color Doppler ultrasound evaluation of theabdominal aorta. COMPARISON: CT dated 02/17/2017. FINDINGS: Mild diffuse luminal irregularity of the abdominal aorta. The proximal aorta measures 2.8 cm AP. The mid aorta measures 2.5 cm AP. Fusiform dilatation of the distal aorta measuring 3 cm AP. The right common iliac artery measures 1.6 cm AP. The left measures 1.3cm AP. IMPRESSION: Mild fusiform aneurysmal dilatation of the distal abdominal aorta,measuring 3 cm AP. -------- FINAL REPORT -------- Dictated By: Sanya York Dictated Date: 02/04/2025 14:27 ET Assigned Physician: Sanya York Reviewed and Electronically Signed By: Sanya York Signed Date: 02/04/2025 14:44 ET Workstation ID: [id number] Transcribed By: Self Edit Transcribed Date: 02/04/2025 14:27 ET us Kamlesh EATON IMG US PROCEDURES Final R esult * Colonoscopy (12/04/2022) Colonoscopy no interpretation , abstracted Anatomical Region Laterality Modality Other Historical Provider HEALTH MAINTENANCE Final Result * Hepatitis C Screening (03/17/2015) Pathologist [facility] Hepatitis C Screening abstracted Historical Provider HEALTH MAINTENANCE Final Result from Last 3 Months or Most Recently Relevant to Health Maintenance Insurance * Guarantor: Roshan Saunders Account Type Relation to Patient Date of Phone Billing Address Personal/Family Self 1950 [address] [place] [address] [facility] Advance Directives * Full Code - Default (Latest Code Status on File) Date Activated Date Inactivated Comments 06/08/2025 6:13 AM 06/08/2025 4:14 PM This is orde r is used when code status has not been discussed with the patient, or code status is otherwise unknown/unconfirmed To update the patient's code status, place a code status order. Do not modify or discontinue any currently active code status orders. Care Teams Career Coordinator Relationship Specialty Start Date End Date Kamlesh Kim PA [address] [place] [address] PCP - General Internal Medicine 02/08/21
--- OUTSIDE RECORDS SUMMARY | 2025-10-08 12:10 | XMS_ITS | Encounter Summary ---
Author Organization [facility] Address [address] [place] [address] Care Team Providers Care Beef Selector Name Role Phone Kamlesh Kim Primary Care Provider [phone] Reason for Visit * Reason Onset Date Comments lab work 10/01/2025 Encounter Details Date Type Department Care Team ([facility] st Contact Info) Description 10/01/2025 Telephone Adult Medicine [address] [phone] Kamlesh Kim PA [address] [place] [phone] Social History Tobacco Use Types Packs/Day Years [...] for your loved ones. For example, children's counselor or elderly care for an older adult? [...] on file documented as of this encounter Progress Notes * Rosario Dozier - 10/06/2025 1:58 PM EST I called this patient to let him know that the lab orders have been place and that he can go to thelab anytime to have this done * Mary Luis - 10/05/2025 9:02 AM EST Patient is calling requesting lab work, patient would like a call back. * UMA Ying - 10/01/2025 3:00 PM EST Insurance usually won't pay for the SCREENING PSA. But I can order a DIAGNOSTIC PSA which insuranceshould cover * Rosario Dozier - 10/01/2025 8:44 AM EST Patient has an appointment with his Urologist and needs to have PSA done. States the urology officecalled and told him to call his PCP to have orders placed. It looks like a PSA was done on 05/20, ordered by Miguelangel. Patient isn't sure if he needs another or if his insurance will pay for another one this year. Would like to see what Miguelangel thinks. Patient wants a call back either way. His urology appointment is October 08 at [facility]. Patient is aware that Miguelangel is off today and message ok to wait for his return. documented in this encounter Plan of Treatment Upcoming Encounters Date Type Department Care Team (Late st Contact Info) Description 11/02/2025 2:30 PM EST Office Visit Adult [address] [phone] Kamlesh Kim PA [address] [place] [phone] 11/25/2025 1:30 PM EST Office Visit Orthopedic Surgery - [place] [phone] [phone] Narciso Mustafa MD [address] [address] 06/16/2026 10:30 AM EDT Office Visit Orthopedic Surgery - [place] [address] [facility] [address] [place] [phone] Narciso Mustafa MD 175 [facility] [address] [place] [address] documented as of this encounter Results * (ABNORMAL) PSA total, free and complexed (10/07/2025 12:04 PM EST) PSA 0.26 0.00 - 4.00 ng/mL LAB CHEMISTRY METHOD 10/07/2025 3:10 PM EST [facility] PSA, Complexed 0.22 0.00 - 3.00 ng/mL LAB CHEMISTRY METHOD 10/07/2025 3:10 PM EST [facility] PSA, Free 0.0 ng/mL LAB CHEMISTRY METHOD 10/07/2025 3:10 PM EST [facility] PSA, Free Pct 0.0(L) >25.0 % LAB CHEMISTRY METHOD 10/07/2025 3:10 PM EST [facility] Blood Venous blood specimen / Unknown Venipuncture / Unknown 10/07/2025 12:04 PM EST 10/07/2025 12:04 PM EST Narrative [facility] - 10/07/2025 3:10 PM EST Free PSA is a calculated value. The diagnostic usefulness of % free PSA has not been established in patients with Total PSA below 2.6 or above 10 ng/mL. This test was performed using the Centaur Chemiluminescent method. PSA values obtained with other methods cannot be used interchangeably. Kamlesh EATON LAB BLOOD ORDERABLES Stephanie rouse Result [facility] [address] [place] [address], documented in this encounter Visit Diagnoses Diagnosis Elevated PSA- Primary Elevated prostate specific antigen (PSA) documented in this encounter Care Teams Beef Selector Relationship Specialty Start Date End Date Kamlesh Kim PA [address] [place] [address] PCP - General Internal Medicine 02/08/21 documented as of this encounter
== END 2025-10-08 11:02 | disposition home or self-care (01) ==
LOC: HO.HUSH 10:08
PROVIDERS: PCP Physician Assistant Medical; Visit Provider Urology
DX: Z13.9 Encounter for screening, unspecified (principal)

== ENCOUNTER → 2025-10-08 | Outpatient (BNVA) | payer BC, SELFPAY | PROVIDERS: PCP Physician Assistant Medical; Visit Provider Urology | DX: C61 Malignant neoplasm of prostate (principal); N50.3 Cyst of epididymis; R39.12 Poor urinary stream; N43.40 Spermatocele of epididymis, unspecified; Z13.9 Encounter for screening, unspecified | CPT/HCPCS: 81003 ==